=== PATIENT | male | born 1945 | race Caucasian/White ===

== ENCOUNTER → 2019-11-23 12:08 | Outpatient (CLI) | payer MEDICARE, BC, SELFPAY ==
--- NOTE | 2019-11-23 12:12 | DI.RAD.S_ITS ---
PROCEDURE: XR LUMBAR SPINE MIN 4V INDICATIONS: low back pain TECHNIQUE: 5 views of the lumbar spine were acquired. COMPARISON: None. FINDINGS: Bones: 5 nonrib-bearing vertebrae are present. There is mildly levoscoliotic bony alignment. No vertebral body compression fractures. No suspicious bony lesions. Quality of visualization is very limited by overlying obstipation and bowel gas. There appears to be a mild to moderate degree of upper lumbosacral spine degenerative disc disease to the L2-3 level and below this level the intervertebral disc height reduction is less. Facet osteoarthritis is moderate in severity and poorly visualized due to factors discussed above. Soft tissues: Overlying bowel gas pattern is normal. No suspicious soft tissue calcifications. Oblique images: No pars defects. IMPRESSION: Moderate degenerative disc disease with mild convex leftward scoliosis centered at L2-3. The degenerative disc disease is most prominent over the upper half of the LS-spine and facet osteoarthritis is quite poorly visualized due to overlying colonic obstipation and bowel gas. No definite compression fracture or subluxation is seen but as noted the study is limited. Dictated by: Jose D Cisneros M.D. on 11/23/2019 at 13:54 Approved by: Jose D Cisneros M.D. on 11/23/2019 at 13:55
== END ==
PROVIDERS: PCP Internal Medicine; Visit Provider Physical Medicine & Rehabilitation
DX: M54.5 Low back pain (principal); M47.27 Other spondylosis with radiculopathy, lumbosacral region; M51.16 Intervertebral disc disorders with radiculopathy, lumbar region; M41.86 Other forms of scoliosis, lumbar region; M48.061 Spinal stenosis, lumbar region without neurogenic claudication; G62.9 Polyneuropathy, unspecified; K59.00 Constipation, unspecified
CPT/HCPCS: 72110; 99213

== ENCOUNTER → 2021-04-08 13:10 | Outpatient (CLI) | payer MEDICARE, BC, SELFPAY ==
--- NOTE | 2021-04-08 13:12 | DI.MRI.S_ITS ---
PROCEDURE: MR LUMBAR SPINE WO CON INDICATIONS: Right L4-5 L5-S1 facet arthropathy TECHNIQUE: Noncontrast sagittal T1 spin echo and T2 fast echo, sagittal STIR, axial T1 and T2 fast spin echo through the lumbar spine. In cases with scoliosis, additional coronal T2 fast spin echo may be performed. COMPARISON: [facility], , L-SPINE WITHOUT CONTRAST, 12/13/2011, 7:43. FINDINGS: Image quality: Excellent. Alignment and Curvature: Degenerative levocurvature centered at L2 with interval increase in rightward displacement of L1 relative to L2 since the prior study, now measuring approximately 8 mm. Trace degenerative anterolisthesis of L4 on L5. Bone Marrow: Marrow is of normal overall signal. No acute vertebral body compression fractures. Spinal Cord: Conus medullaris terminates at the L1 level. Visualized cord demonstrates normal signal and size. Paraspinous Soft Tissues: No paravertebral masses. T12-L1: No canal stenosis or foraminal stenosis. L1-L2: Interval development of moderate disc height loss and increase in posterior disc bulge. Bilateral facet hypertrophy with significant interval increase in the right facet hypertrophy with a medially directed component resulting in severe right lateral recess stenosis and moderately severe stenosis of the right side of the canal. There is moderate to severe right foraminal narrowing with right foraminal nerve root impingement. There is mild to moderate left foraminal narrowing. L2-L3: Severe chronic disc height loss as before. Bilateral facet hypertrophy, slightly increased. Mild canal stenosis is not significantly changed. Unchanged moderate to severe right foraminal narrowing and moderate left foraminal narrowing with flattening deformity on the exiting bilateral L2 nerve roots. L3-L4: Interval development of a large diffuse disc bulge, which indents on the ventral aspect of the thecal sac, and increase in facet and ligament hypertrophy, exuberant. This results in moderate to severe canal stenosis. There is moderate right foraminal narrowing and moderate to severe left foraminal narrowing with flattening deformity on the exiting bilateral L3 nerve roots. L4-L5: Minimal anterolisthesis of L4 on L5. Diffuse disc bulge. Interval increase in bilateral facet hypertrophy, exuberant. Moderate canal stenosis. Moderate right foraminal narrowing and moderate to severe left foraminal narrowing with bilateral flattening deformity on the exiting bilateral L4 nerve roots. L5-S1: No canal stenosis. Bilateral facet hypertrophy, prominent on the left. Right foramen is patent. Mild to moderate left foraminal narrowing. IMPRESSION: 1. Interval overall progression of degenerative change. Findings include interval increase in rightward displacement of L1 relative to L2, as well as progression of multilevel impressive facet arthropathy. 2. Progression at L3-L4 includes development of a large diffuse disc bulge which, in conjunction with facet arthropathy, results in moderate to severe canal stenosis. 3. At L1-L2, progression of right facet arthropathy results in severe right lateral recess stenosis and moderately severe stenosis of the right side of the canal. 4. Canal stenosis is mild at L2-L3, moderate to severe at L3-L4, and moderate at L4-L5. 4. Multilevel foraminal narrowing as described above. Dictated by: Pipe Menjivar M.D. on 04/10/2021 at 10:03 Approved by: Pipe Menjivar M.D. on 04/10/2021 at 10:17
== END ==
PROVIDERS: PCP Internal Medicine; Referring Provider Physical Medicine & Rehabilitation; Visit Provider Physical Medicine & Rehabilitation
DX: M47.816 Spondylosis without myelopathy or radiculopathy, lumbar region (principal); M48.061 Spinal stenosis, lumbar region without neurogenic claudication; M47.817 Spondylosis without myelopathy or radiculopathy, lumbosacral region; M48.07 Spinal stenosis, lumbosacral region; M51.26 Other intervertebral disc displacement, lumbar region; M41.9 Scoliosis, unspecified
CPT/HCPCS: 72148

== ENCOUNTER → 2021-04-24 11:05 | Outpatient (CLI) | payer MEDICARE, BC, SELFPAY ==
[2021-04-24 17:33] LABS: COVID19 -Nasal RAPID Negative (Negative)
== END ==
PROVIDERS: PCP Internal Medicine; Referring Provider Physical Medicine & Rehabilitation; Visit Provider Physical Medicine & Rehabilitation
DX: Z20.822 Contact with and (suspected) exposure to COVID-19 (principal)
CPT/HCPCS: 87635; C9803

== ENCOUNTER 2021-04-25 15:06 | Outpatient (CLI) | payer MEDICARE, BC, SELFPAY ==
[2021-04-25] VITALS (8 sets, daily range): BP systolic 130–149; BP diastolic 66–85; PULSE 64–78; RESP 17–24; TEMP 36.6; O2SAT 96–100
--- NOTE | 2021-04-25 15:12 | DI.RAD.S_ITS ---
PROCEDURE: PAIN L/SI FACET INJ/BLK 1STL INDICATIONS: SPONDYLOSIS COMPARISON: X-ray lumbar spine, 11/25/2019. MRI lumbar spine, 04/08/2021. FINDINGS: Fluoroscopic spot filming was performed to verify placement of spinal needles at the L4-L5 and L5-S1 facet joints as labeled on the films. Appropriate location(s) of the needle tip(s) was confirmed by injection of iodinated contrast. IMPRESSION: Fluoroscopy guidance for needle placement. Dictated by: Brian Escobar M.D. on 04/25/2021 at 17:26 Approved by: Brian Escobar M.D. on 04/25/2021 at 17:27
[2021-04-25] MEDS: fentaNYL 100 MCG/2 ML INJ 50 MCG IV (15:53)
[2021-04-25] MEDS: MIDAZOLAM 5 MG/5 ML VIAL IV (15:53)
[2021-04-25] MEDS: IOPAMIDOL 15 ML VIAL 3 ML INJ (15:57)
[2021-04-25] MEDS: BUPIVACAINE 0.5% (PF) VIAL 2 ML INJ (15:57)
[2021-04-25] MEDS: BETAMETHASONE 30 MG/5 ML MDV 12 MG INJ (15:57)
--- NOTE | 2021-04-25 16:07 | P.PCN_ITS ---
Date/Time/Diagnoses Date of procedure: 04/25/21 Time of procedure: 16:07 Pre-procedure diagnosis: 1. FACET ARTHROPATHY, 2. AXIAL LBP, 3. MULTILEVEL DDD Post-procedure diagnosis: same Procedure Notes Procedure: 1. FLUOROSCOPICALLY GUIDED CONTRAST CONTROLLED FACET JOINT INJECTIONS RIGHT L4/5, L5/S1 Indications: Gera is referred by Dr. Matta for treatment of Axial LBP Physician: Magdy Corcoran Total Fluoroscopy time (seconds): 5 Total sedation minutes: 9 Complications: none Procedure in detail & Post-procedure care: FINDINGS Multilevel Facet Arthropathy with Clinically significant axial LBP DESCRIPTION OF PROCEDURE Fluoroscopically guided, contrast-controlled right L4/5, L5/S1 facet joint injections. Following review of allergy and review of potential side effects and complications, including, but not necessarily limited to, infection, allergic reaction, local tissue breakdown, stroke, temporary or permanent nerve injury, paralysis, and possible , the patient indicated that the patient understood and agreed to proceed. An informed consent document was signed by the patient, witnessed by a nurse, and placed in the patient's chart. Additionally, other treatment options including medications, modalities, and physical therapy were reviewed with the patient. After review of previous anaesthesic history and IV conscious sedation the patient was deemed safe to proceed with today?s procedure with IV conscious sedation as ASA class II designation. Safety time-out was performed to confirm patient ID, procedure to be performed and site of procedure. IV sedation was accomplished with a combination of 2mg of Versed and 50mcg of Fentanyl was administered by the RN after DO order, titrated to patient comfort during the course of the procedure while the patient remained responsive to all verbal commands. In the prone position, following sterile prep and drape of the lumbar region, the posterior aspect of the right L4/5, L5/S1 facet joints were identified fluoroscopically. The skin was anesthetized via a 25-gauge 1.5-inch needle with 1% lidocaine solution into the corresponding facet joints. At this point, a 22- gauge 3.5-inch spinal needle was atraumatically introduced and advanced under fluoroscopic guidance into the corresponding facet joints. Following negative aspiration, injections of approximately 0.2-cc of Isovue 200 confirmed interarticular placement without vascular uptake. Radiological data, including multiple fluoroscopic views of the lumbosacral spine, reveal a spinal needle at the right L4/5, L5/S1 facet joints. Subsequent views show flow of contrast material both superiorly and inferiorly within the joint space without vascular or intrathecal uptake. At this point, a total of 0.5cc including a mixture of 0.25cc Marcaine and 0.25cc betamethasone was injected without complication into each of the corresponding facet joints. The procedure tolerated the procedure well without signs or symptoms of compl ications prior to transfer to the recovery area continued monitoring without incident. The patient was then transferred to the recovery area where they were observed for an appropriate period of time after the injection. The patient reported a VAS score of 7 prior to the procedure and a post-procedure VAS of 0. POST OP INSTRUCTIONS The patient was provided a Pain Log to continue to record their response to the target-specific procedure prior to follow-up visit with their referring physician. Additionally, specific post-injection care instructions and a contact number to our office were provided if concerns arise regarding possible complications associated with the procedure are suspected.
== END 2021-04-25 16:25 | disposition home or self-care (01) ==
PROVIDERS: PCP Internal Medicine; Referring Provider Physical Medicine & Rehabilitation; Visit Provider Physical Medicine & Rehabilitation
DX: M47.816 Spondylosis without myelopathy or radiculopathy, lumbar region (principal); M47.817 Spondylosis without myelopathy or radiculopathy, lumbosacral region; M51.36 Other intervertebral disc degeneration, lumbar region; M51.37 Other intervertebral disc degeneration, lumbosacral region; M54.5 Low back pain
CPT/HCPCS: 64493; 64494; J0702; J2250; J3010

== ENCOUNTER → 2021-06-13 12:12 | Outpatient (CLI) | payer MEDICARE, BC, SELFPAY ==
--- NOTE | 2021-06-13 12:14 | DI.RAD.S_ITS ---
PROCEDURE: XR LUMBAR SPINE MIN 4V INDICATIONS: BACK PAIN TECHNIQUE: 5 views of the lumbar spine acquired, including flexion and extension views. COMPARISON: [facility], , XR LUMBAR SPINE MIN 4V, 11/23/2019, 12:07. FINDINGS: Bones: 5 nonrib-bearing vertebrae are present. Mild levoscoliosis centered at the L3 level. Trace spondylolisthesis at the L4-L5 level. Multilevel disc degeneration, most notably and severe at the L1-L2 and L2-L3 level. Moderate L4-L5 and L5-S1 facet joint arthropathy.. No vertebral body compression fractures. No suspicious bony lesions. Soft tissues: Overlying bowel gas pattern is normal. No suspicious soft tissue calcifications. IMPRESSION: Multilevel spondylosis similar to prior examination dated 11/23/2019. Dictated by: Jordi Kahn [facility] Interpreted: Albert Mendoza MD on 06/13/2021 at 12:47 Transcribed by: DALLIN on 06/13/2021 at 12:51 Approved by: Jose D Cisneros M.D. on 06/14/2021 at 13:35
== END ==
PROVIDERS: PCP Internal Medicine; Referring Provider Physical Medicine & Rehabilitation; Visit Provider Physical Medicine & Rehabilitation
DX: M47.816 Spondylosis without myelopathy or radiculopathy, lumbar region (principal); M47.817 Spondylosis without myelopathy or radiculopathy, lumbosacral region; M41.26 Other idiopathic scoliosis, lumbar region
CPT/HCPCS: 72110

== ENCOUNTER 2022-08-02 07:52 | Outpatient (CLI) | payer MEDICARE, BC, SELFPAY ==
[2022-08-02] VITALS (7 sets, daily range): BP systolic 112–139; BP diastolic 57–74; PULSE 62–68; RESP 14–21; TEMP 36.5; O2SAT 96–100
--- NOTE | 2022-08-02 07:54 | DI.RAD.S_ITS ---
PROCEDURE: PAIN L/SI FACET INJ/BLK 1STL INDICATIONS: SPONDYLOSIS COMPARISON: [facility], , PAIN L/SI FACET INJ/BLK 1STL, 04/25/2021, 15:58. FINDINGS: Fluoroscopic spot filming was performed to verify placement of spinal needles at the L4 -S1 level(s), as labeled on the films. Appropriate location(s) of the needle tip(s) was confirmed by injection of iodinated contrast. IMPRESSION: Needle placement as above. Dictated by: Kayla Campbell M.D. on 08/02/2022 at 15:00 Approved by: Kayla Campbell M.D. on 08/02/2022 at 15:01
[2022-08-02] MEDS: MIDAZOLAM 2 MG/2 ML VIAL IV (08:38)
[2022-08-02] MEDS: BUPIVACAINE 0.5% (PF) VIAL 5 ML INJ (08:44)
[2022-08-02] MEDS: IOPAMIDOL 15 ML VIAL 3 ML INJ (08:45)
--- NOTE | 2022-08-02 08:53 | PM.PROC.IR.1 ---
Date/Time/Diagnoses Date of procedure: 08/02/22 Time of procedure: 08:53 Pre-procedure diagnosis: 1. FACET ARTHROPATHY Post-procedure diagnosis: same Procedure Notes Procedure: 1. Right L4, L5 and S1 MB BLOCKS LA Indications: Gera is referred by Dr. Matta for treatment of Right Axial LBP. Physician: Magdy Corcoran Total Fluoroscopy time (seconds): 6 Total sedation minutes: 11 Complications: none Procedure in detail & Post-procedure care: DESCRIPTION OF PROCEDURE Fluoroscopically guided, contrast-controlled right L4, L5 and S1 medial branch blocks with 0.5cc of 0.5% Marcaine. Following review of allergy and review of potential side effects and complications, including, but not necessarily limited to, infection, allergic reaction, local tissue breakdown, nerve injury, paralysis, stroke and possible , the patient indicated that the patient understood and agreed to proceed. An informed consent document was signed by the patient, witnessed by a nurse, and placed in the patient's chart. After review of previous anaesthesic history and IV conscious sedation the patient was deemed safe to proceed with today?s procedure with IV conscious sedation as ASA class II designation. Safety time-out was performed to confirm patient ID, procedure to be performed and site of procedure. IV sedation was accomplished with a combination of 2mg of Versed was administered by the RN after DO order, titrated to patient comfort during the course of the procedure while the patient remained responsive to all verbal commands In the prone position, following sterile prep and drape of the lumbar region, the right L4, L5 and S1 anatomical location of the medial branch of the dorsal ramus was identified fluoroscopically. Subsequently an anesthetic skin wheal using 1% lidocaine solution was initiated at each of the anatomical spots. Subsequently then a 22-gauge 3.5-inch spinal needle was atraumatically introduced and advanced under fluoroscopic guidance at each of the corresponding sites at the right L4, L5 and S1 MB. After negative aspiration, 0.2 cc of Isovue 200 was injected, confirming placement without vascular or intrathecal uptake. Subsequently then 0.5 cc of 0.5% Marcaine solution was injected at each of the corresponding sites at the right L4, L5 and S1 medial branch locations. The patient tolerated the procedure well without signs or symptoms of complications. The procedure tolerated the procedure well without signs or symptoms of complications prior to transfer to the recovery area continued monitoring without incident. Post-procedure, the patient was monitored initiating provocative activities to measure the amount of relief from block of the facetogenic pain. The patient reported a VAS of 7 prior to the procedure and a post-procedure VAS of 1. It has been a pleasure to assist in the diagnostic and therapeutic care of your patient. POST OP INSTRUCTIONS The patient was provided with a Pain Log to complete over the next several hours and subsequent days prior to the patient's follow up with the ordering physician. If the patient has awake overnight monitor relief to the solution applied, then they may be a candidate for medial branch rhizotomy. The patient is aware, was provided, once again, with a Pain Log and will follow up with the referring physician for review and clinical correlation.
== END 2022-08-02 09:10 | disposition home or self-care (01) ==
LOC: RAD 07:54
PROVIDERS: PCP Internal Medicine; Referring Provider Physical Medicine & Rehabilitation; Visit Provider Physical Medicine & Rehabilitation
DX: M47.817 Spondylosis without myelopathy or radiculopathy, lumbosacral region (principal); M47.816 Spondylosis without myelopathy or radiculopathy, lumbar region
CPT/HCPCS: 64493; 64494; 99152; J2250

== ENCOUNTER 2022-11-22 10:17 | Outpatient (CLI) | payer MEDICARE, BC, SELFPAY ==
[2022-11-22] VITALS (9 sets, daily range): BP systolic 108–136; BP diastolic 59–72; PULSE 61–67; RESP 16–24; TEMP 36.1; O2SAT 97–99
--- NOTE | 2022-11-22 10:19 | DI.RAD.S_ITS ---
PROCEDURE: PAIN L/S MED/LAT N RFA INDICATIONS: SPONDYLOSIS COMPARISON: [facility], , PAIN L/SI FACET INJ/BLK 1STL, 08/02/2022, 8:44. FINDINGS: Fluoroscopic spot filming was performed to verify placement of spinal needles on on the right at the L4, L5, and S1 levels. IMPRESSION: Images during rhizotomy within normal limits. Dictated by: Morgan Gauthier M.D. on 11/27/2022 at 14:14 Approved by: Morgan Gauthier M.D. on 11/27/2022 at 14:14
[2022-11-22] MEDS: MIDAZOLAM 2 MG/2 ML VIAL IV (11:38)
[2022-11-22] MEDS: LIDOCAINE 1% (PF) 5 ML INJ (11:43)
[2022-11-22] MEDS: BUPIVACAINE 0.5% (PF) 30 ML VIAL 5 ML INJ (11:43)
--- NOTE | 2022-11-22 12:13 | P.PCN_ITS ---
Date/Time/Diagnoses Date of procedure: 11/22/22 Time of procedure: 12:13 Pre-procedure diagnosis: 1. RECALCITRANT FACET ARTHROPATHY Post-procedure diagnosis: same Procedure Notes Procedure: 1. RIGHT L4 AND L5 MEDIAL BRANCH RADIOFREQUENCY NEUROTOMY AND RIGHT S1 DORSAL RAMUS BRANCH RADIOFREQUENCY NEUROTOMY Indications: Gera is referred by Dr. Matta for treatment of facet arthropathy. Physician: Magdy Corcoran Total Fluoroscopy time (seconds): 10 Total sedation minutes: 31 Complications: none Procedure in detail & Post-procedure care: DESCRIPTION OF PROCEDURE Right L4 and L5 medial branch radiofrequency neurotomy and right S1 dorsal ramus branch radiofrequency neurotomy under fluoroscopy with conscious sedation. The patient is well known to this clinic having undergone previous facet injections with good but temporary relief. The patient has experienced appropriate, concordant relief with previous facet and median branch blocks but the patient's pain has been recalcitrant to further conservative measures. Therefore, based upon the patient's relief and persistent symptoms, the patient is considered an appropriate candidate for facet rhizotomy. All of the patient's questions regarding the risks versus benefits of the procedure, including, but not limited to, bleeding, infection, temporary as well as lasting nerve injury, paralysis, stroke, and , as well treatment alternatives were answered to satisfaction. After review of previous anaesthesic history and IV conscious sedation the patient was deemed safe to proceed with today?s procedure with IV conscious sedation as ASA class II designation. Safety time-out was performed to confirm patient ID, procedure to be performed and site of procedure. IV sedation was accomplished with a combination of 2mg of Versed was administered by the RN after DO order, titrated to patient comfort during the course of the procedure while the patient remained responsive to all verbal commands. After obtaining informed consent, denial of pertinent drug allergies, as well as being made aware of the potential risks of bleeding, infection, spinal cord trauma, paralysis, temporary and permanent nerve damage, seizure, stroke, and possible , the patient was brought to the fluoroscopy suite and positioned prone on the fluoroscopy table. The lumbar region was prepped with Betadine and covered with a fenestrated drape in the usual sterile fashion. Appropriate monitors applied including pulse oximeter, pulse, and blood pressure for regular monitoring throughout the procedure. After local infiltration using 1% lidocaine, under fluoroscopic guidance, a 10- cm RF insulated needle with a 10-mm active tip was positioned parallel to the junction of the right sacral ala and the superior articulating process where the S1 dorsal ramus resides. Needle placement was confirmed with sensory stimulation at 50 Hz, with motor stimulation of .5v on the right which produced local stimulation without radicular component. The stimulation was then increased to 2v with, once again, only local multifidus stimulation without radicular component. This was then followed by two discreet lesions performed at 80 degrees Celsius for 90 seconds each. The needle was then removed and the identical procedure was performed along the length of the right L5 medial branch with motor stimulation at .7v on the right. The identical procedure was once again performed along the length of the right L4 medial branch with motor stimulation of .5v on the right. The patient tolerated the procedure well without signs or symptoms of complications prior to transfer to the recovery area continued monitoring without incident. The patient was then transferred to the recovery area where they were observed for an appropriate period of time after the injection. The patient was then transferred to the recovery area where they were observed for an appropriate period of time after the injection. The patient reported a VAS score of 7 prior to the procedure and a post- procedure VAS of 0. POST OP INSTRUCTIONS The patient was provided a Pain Log to continue to record the patient's response to the target-specific procedure prior to the patient's follow-up visit with the referring physician. Additionally, specific post-injection care instructions and a contact number to our office were provided if concerns arise regarding possible complications associated with the procedure are suspected.
== END 2022-11-22 12:15 | disposition home or self-care (01) ==
LOC: RAD 10:18
PROVIDERS: PCP Internal Medicine; Referring Provider Physical Medicine & Rehabilitation; Visit Provider Physical Medicine & Rehabilitation
DX: M47.816 Spondylosis without myelopathy or radiculopathy, lumbar region (principal); M47.817 Spondylosis without myelopathy or radiculopathy, lumbosacral region
CPT/HCPCS: 64635; 64636; 99152; 99153; J2250

== ENCOUNTER → 2023-06-06 10:48 | Outpatient (CLI) | payer MEDICARE, BC, SELFPAY ==
--- NOTE | 2023-06-06 10:50 | DI.RAD.S_ITS ---
PROCEDURE: XR CHEST 2V INDICATIONS: cardiac symptoms TECHNIQUE: 2 views of the chest were acquired. COMPARISON: None. FINDINGS: Surgical changes and devices: None. Lungs and pleura: No infiltrate or consolidation. Slight blunting of the left costophrenic angle. No pneumothorax. Mediastinum: Mediastinal contours are normal. Heart size is normal. Bones and chest wall: No suspicious bony abnormalities. Soft tissues appear unremarkable. IMPRESSION: 1. Slight blunting of left costophrenic angle may be secondary to pleural scarring or trace pleural effusion. Dictated by: Brian Escobar M.D. on 06/06/2023 at 12:12 Approved by: Brian Escobar M.D. on 06/06/2023 at 12:13
== END ==
PROVIDERS: PCP Pediatrics; Referring Provider Family Medicine; Visit Provider Family Medicine
DX: R06.09 Other forms of dyspnea (principal); I20.8 Other forms of angina pectoris; R42 Dizziness and giddiness
CPT/HCPCS: 71046

== ENCOUNTER → 2023-06-11 09:06 | Outpatient (CLI) | payer MEDICARE, BC, SELFPAY ==
[2023-06-11 10:26] LABS: Add Manual Diff / Slide Review NO; Basophils Absolute Auto 0 /uL (0-100); Basophils Percent Auto 0.8 % (0-2); Eosinophils Absolute Auto 100 /uL (0-450); Eosinophils Percent Auto 2.9 % (2-4); Hematocrit 38.3 % (41-53); Hemoglobin 13.3 g/dL (13.5-17.5); Lymphocytes Absolute Auto 1100 /uL (1100-4500); Lymphocytes Percent Auto 26.7 % (25-40); Mean Corpuscular HGB Conc 34.7 % (30-36); Mean Corpuscular Hemoglobin 33.2 PG (26-34); Mean Corpuscular Volume 95.6 fL (80-100); Monocytes Absolute Auto 500 /uL (0-900); Monocytes Percent Auto 11.7 % (3-14); Neutrophils Absolute Auto 2300 /uL (1500-7000); Neutrophils Percent Auto 57.9 % (50-75); Platelet Count 201 X10^3/uL (150-400); Red Cell Distribution Width 13.8 % (11.6-14.8)
[2023-06-11 10:38] LABS: Alanine Aminotransferase 25 IU/L (<50); Albumin 4.3 g/dL (3.5-5.0); Albumin Globulin Ratio 1.5 (1.0-2.8); Alkaline Phosphatase 60 U/L (38-126); Aspartate Aminotransferase 44 IU/L (17-59); BUN Creatinine Ratio 27.5 (6-22); Bilirubin Total 1.4 mg/dL (0.2-1.3); Blood Urea Nitrogen 22 mg/dL (9-20); Calcium 9.7 mg/dL (8.4-10.2); Carbon Dioxide 28 mmol/L (22-32); Chloride 103 mmol/L (98-107); Cholesterol 218 mg/dL (140-199); Estimated Glomerular Filt Rate > 60 mL/min (>60); Globulin 2.8 g/dL (1.7-4.1); Glucose 104 mg/dL (80-110); HDL Cholesterol 61 mg/dL (40-60); HEMOLYSIS < 15 (0-50); LDL Cholesterol Calculated 141 mg/dL (<100); Potassium 4.7 mmol/L (3.4-5.1); Sodium 137 mmol/L (137-145); Total Protein 7.1 g/dL (6.3-8.2); Triglycerides 81 mg/dL (35-150)
== END ==
PROVIDERS: PCP Family Medicine; Referring Provider Family Medicine; Visit Provider Family Medicine
DX: I20.8 Other forms of angina pectoris (principal); R06.09 Other forms of dyspnea; R42 Dizziness and giddiness
CPT/HCPCS: 36415; 80053; 80061; 85025

== ENCOUNTER → 2023-06-17 12:04 | Outpatient (CLI) | payer MEDICARE, BC, SELFPAY ==
--- NOTE | 2023-06-17 12:05 | DI.NM.S_ITS ---
PROCEDURE: NM SHO PERF SPECT REST & STR Rest and exercise myocardial perfusion SPECT with gated imaging and ejection fraction RADIOPHARMACEUTICAL: 26.1 mCi Tc-99m sestamibi IV at rest and 26.9 mCi Tc-99m sestamibi IV at peak exercise. A two day-protocol was performed. INDICATIONS: Dyspnea on exertion, positional lightheadedness, angina TECHNIQUE: Radiopharmaceutical was injected at peak stress test, and also at rest. SPECT images were obtained. SPECT myocardial perfusion images were displayed in short axis, horizontal long axis, and vertical long axis views. Gated images were reviewed using [employer] software. COMPARISON: None. CARDIAC STRESS: A standard Lloyd treadmill exercise tolerance test was performed by the patient under the supervision of an attending staff. The patient exercised for 4 minutes and 15 seconds; functional aerobic impairment (VANESSA) is +12%. Hemodynamic data: There is normal blood pressure and heart rate response to exercise stress. Patient achieved 124% of maximum predicted heart rate at peak exercise. Symptoms: Patient had non-diagnostic chest pain during exercise. EKG: No diagnostic EKG changes of ischemia; frequent PACs and run of atrial tachycardia with exercise that converted to sinus recovery. FINDINGS: Raw data: There is good myocardial labeling by radiotracer. No significant motion artifacts. Left ventricle function: Gated images demonstrate normal left ventricle wall thickening. No segmental wall motion abnormality. No transient ischemic dilation; TID is 0.84 (normal less than 1.3). The left ventricle resting end-diastolic volume is 109 mL. Left ventricle stress ejection fraction is 79%; normal values are above 45%. Myocardial perfusion: There is normal distribution of activity in the left and right ventricular myocardium on stress prone imaging, suggesting no ischemia and no prior infarction. IMPRESSION: Low risk, normal treadmill nuclear stress test from inducible ischemia standpoint. Run of sustained atrial tachycardia with exercise. 1) No perfusion evidence of ischemia or infarction. 2) Normal left ventricular size, wall motion, and systolic function (EF post stress 79%). 3) No ST changes during exercise or recovery. 4) Non-diagnostic chest pain during exercise that resolved during recovery. 5) Run of sustained atrial tachycardia with exercise that converted to sinus rhythm during recovery. 6) Reduced exercise tolerance (VANESSA +12%). Target heart rate achieved. Appropriate BP response to exercise. 7) No prior nuclear stress test available for comparison. Dictated by: Teodora Alejandra MD on 06/18/2023 at 16:58 Approved by: Teodora Alejandra MD on 06/18/2023 at 17:04
== END ==
PROVIDERS: PCP Family Medicine; Referring Provider Family Medicine; Visit Provider Family Medicine
DX: I20.8 Other forms of angina pectoris (principal); R06.09 Other forms of dyspnea; R42 Dizziness and giddiness
CPT/HCPCS: 78452; 93017; A9502

== ENCOUNTER → 2023-06-18 09:04 | Outpatient (CLI) | payer MEDICARE, BC, SELFPAY ==
--- NOTE | 2023-06-18 09:06 | DI.ECHO.S_ITS ---
[facility] +---------+ : : [address] : : : : [id number] : : : : Phone: [phone]+ Echocardiogram Report + + :Name: MERLY LEWIS Study Date: 06/18/2023 Height: 74 in : :[facility] ReadingLocation: Weight: 175 lb : : Gender: Male BSA: 2.1 m2 : :: 1945 Age: 78 yrs BP: 122/81 mmHg: :Reason For Study: CARDIAC MURMUR : :Ordering Physician: WAGNER NAQVIPerformed By: Josy López : :Referring: KANDI NAQVI : + + Interpretation Summary 1) Normal left ventricular thickness, size, wall motion, and systolic function (EF 55-60%). 2) Normal right ventricular size and function. 3) There is borderline bileaflet mitral valve prolapse. 4) There is mild to moderate mitral regurgitation. 5) There is mild to moderate tricuspid regurgitation. 6) The ascending aorta is mildly enlarged at 4.2cm. 7) No prior Echo available for comparison. Procedure: A two-dimensional transthoracic echocardiogram with color flow and Doppler was performed. The study quality was technically adequate. There is no prior echocardiogram noted for this patient. The patient was in sinus rhythm with heart rates between 53-73 bpm during the exam. Left Ventricle: The left ventricle is normal in size and wall thickness. The ejection fraction is estimated to be 55-60%. Left ventricular systolic function appears normal without focal wall motion abnormalities. Right Ventricle: The right ventricle is normal in size and function. Atria: The left atrial size is normal. Right atrial size is normal. There is no Doppler evidence for an interatrial shunt. Mitral Valve: There is prolapse of the posterior mitral valve leaflet(s). There is prolapse of the anterior mitral valve leaflet. There is borderline mitral valve prolapse. There is mild to moderate mitral regurgitation. Aortic Valve: The aortic valve is trileaflet. The aortic valve opens well. There is no aortic valve stenosis. No aortic regurgitation is present. Tricuspid Valve: The tricuspid valve is normal in structure and function. There is mild to moderate tricuspid regurgitation. The right ventricular systolic pressure is estimated to be at least 28 mmHg based on an estimated right atrial pressure of 3 mm Hg. Pulmonic Valve: The pulmonic valve leaflets are thin and pliable; valve motion is normal. There is mild to moderate pulmonic regurgitation. Great Vessels: The aortic root is normal size. The ascending aorta is mildly enlarged. The IVC is of normal diameter and collapses greater than 50% with a sniff. This suggests a low right atrial pressure of 3 mm Hg. Pericardium/ Pleura There is no pericardial effusion. There is no pleural effusion. MMode/2D Measurements & Calculations LVIDd: 4.9 cm LVOT diam: 2.4 cm LVIDs: 3.3 cm Ao root diam: 4.0 cm FS: 32.7 % asc Aorta Diam: 4.2 cm IVSd: 0.72 cm Ao Arch Diam (Prox Trans): 3.1 cm LVPWd: 0.73 cm LV hernandez. diameter/BSA (cm/m^2): 2.4 LV sys. diameter/BSA (cm/m^2): 1.6 LA A2 area: 16.2 cm2 RA long axis: 5.0 cm LA A4 area: 17.4 cm2 RA area: 17.9 cm2 LA length (vol): 4.8 cm RA vol: 53.9 ml LA vol: 49.7 ml RA : 26.3 ml/m2 LA vol index: 24.2 ml/m2 IVC diam: 2.0 cm RVD1 (basal): 3.6 cm RVD2 (mid): 2.8 cm TAPSE: 1.7 cm Doppler Measurements & Calculations Ao V2 max: 92.7 cm/sec LVOT Max Willis: 88.6 cm/sec Ao V2 mean: 65.7 cm/sec LV V1 max P.1 mmHg Ao max P.4 mmHg LV V1 VTI: 18.9 cm Ao mean P.9 mmHg JASPER(I,D): 4.0 cm2 Ao V2 VTI: 22.0 cm JASPER(V,D): 4.5 cm2 sev ratio: 0.86 JASPER indexed to BSA (cm^2/m^2): 2.0 MV E max willis: 55.2 cm/sec TR max willis: 250.5 cm/sec MV A max willis: 38.5 cm/sec TR max P.1 mmHg MV E/A: 1.4 PA V2 max: 83.6 cm/sec Med Peak E' Willis: 9.0 cm/sec PA V2 mean: 63.2 cm/sec E/E' med: 6.1 PA mean P.7 mmHg Lat Peak E' Willis: 9.1 cm/sec PA pr(Accel): 37.9 mmHg E/E' lat: 6.0 E/e' average: 6.1 MV dec time: 0.30 sec SV(OT): 88.1 ml Reading Physician:02:27 PM
== END ==
PROVIDERS: PCP Family Medicine; Referring Provider Family Medicine; Visit Provider Family Medicine
DX: I08.1 Rheumatic disorders of both mitral and tricuspid valves (principal); I77.89 Other specified disorders of arteries and arterioles; R42 Dizziness and giddiness; R06.09 Other forms of dyspnea; I20.8 Other forms of angina pectoris; Z86.79 Personal history of other diseases of the circulatory system
CPT/HCPCS: 93306

== ENCOUNTER → 2023-07-12 16:28 | Outpatient (CLI) | payer MEDICARE, BC, SELFPAY ==
[2023-07-12 17:15] LABS: Add Manual Diff / Slide Review NO; Basophils Absolute Auto 0 /uL (0-100); Basophils Percent Auto 0.6 % (0-2); Eosinophils Absolute Auto 200 /uL (0-450); Eosinophils Percent Auto 3.1 % (2-4); Hematocrit 38.2 % (41-53); Hemoglobin 12.9 g/dL (13.5-17.5); Lymphocytes Absolute Auto 1000 /uL (1100-4500); Lymphocytes Percent Auto 19.7 % (25-40); Mean Corpuscular HGB Conc 33.9 % (30-36); Mean Corpuscular Hemoglobin 32.9 PG (26-34); Monocytes Absolute Auto 600 /uL (0-900); Neutrophils Absolute Auto 3200 /uL (1500-7000); Neutrophils Percent Auto 64.6 % (50-75); Platelet Count 220 X10^3/uL (150-400); Red Blood Cell Count 3.94 X10^6/uL (4.5-5.9); Red Cell Distribution Width 14.2 % (11.6-14.8); White Blood Cell Count 4.9 X10^3/uL (4.5-11.0)
[2023-07-12 17:56] LABS: TSH w/ Reflex to FT4 1.11 uIU/mL (0.47-4.68)
== END ==
PROVIDERS: PCP Family Medicine; Referring Provider Family Medicine; Visit Provider Family Medicine
DX: D64.9 Anemia, unspecified (principal); R07.89 Other chest pain; R53.82 Chronic fatigue, unspecified
CPT/HCPCS: 84443; 85025

== ENCOUNTER → 2023-09-02 07:31 | Outpatient (CLI) | payer MEDICARE, BC, SELFPAY ==
--- NOTE | 2023-09-02 07:35 | DI.RAD.S_ITS ---
PROCEDURE: XR LUMBAR SPINE MIN 4V INDICATIONS: BACK PAIN TECHNIQUE: 5 views of the lumbar spine were acquired, including bilateral oblique views. COMPARISON: [facility], CR, XR LUMBAR SPINE MIN 4V, 06/13/2021, 12:24. [facility], CR, XR LUMBAR SPINE MIN 4V, 11/23/2019, 12:07. FINDINGS: Bones: 5 nonrib-bearing vertebrae are present. There is levoconvex curvature of the lumbar spine. Mild grade 1 anterolisthesis at L4-5. Trace grade 1 retrolisthesis at L2-3. No vertebral body compression fractures. No suspicious bony lesions. Multilevel disc space narrowing and degenerative endplate changes are seen. There is multilevel facet hypertrophy. Bones are osteopenic. Soft tissues: Overlying bowel gas pattern is normal. Aortic atherosclerotic calcifications. Oblique images: No pars defects. IMPRESSION: Moderate to severe multilevel spondylosis and degenerative spondylolisthesis, minimally progressed when compared to the exam from 06/13/2021. Approved by: Wilbert Rosado M.D. on 09/02/2023 at 10:14
--- NOTE | 2023-09-02 09:28 | DI.RAD.S_ITS ---
PROCEDURE: XR SHOULDER RT MIN 2V INDICATIONS: Right shoulder pain TECHNIQUE: 3 views of the shoulder were acquired. COMPARISON: None. FINDINGS: Bones: No fractures or dislocations. No suspicious bony lesions. Visualized ribs appear intact. Periarticular osteophyte formation at the acromioclavicular and glenohumeral joints Soft tissues: No suspicious soft tissue calcifications. IMPRESSION: Osteoarthritis. No acute fracture. No osseous lesion. If symptoms and/or clinical suspicion for pathology persist, further assessment with repeat, or advanced imaging (e.g., CT, MRI, or bone scan) may be helpful for further assessment. Dictated by: Monica Cárdenas M.D. on 09/02/2023 at 13:39 Approved by: Monica Cárdenas M.D. on 09/02/2023 at 13:40
== END ==
PROVIDERS: PCP Family Medicine; Referring Provider Physical Medicine & Rehabilitation; Visit Provider Physical Medicine & Rehabilitation
DX: M47.27 Other spondylosis with radiculopathy, lumbosacral region (principal); M47.26 Other spondylosis with radiculopathy, lumbar region; M48.061 Spinal stenosis, lumbar region without neurogenic claudication; M43.16 Spondylolisthesis, lumbar region; M19.011 Primary osteoarthritis, right shoulder; M75.41 Impingement syndrome of right shoulder; M53.3 Sacrococcygeal disorders, not elsewhere classified; M41.26 Other idiopathic scoliosis, lumbar region
CPT/HCPCS: 72110; 73030; 99214

== ENCOUNTER 2023-09-10 10:23 | Outpatient (CLI) | payer MEDICARE, BC, SELFPAY ==
[2023-09-10] VITALS (8 sets, daily range): BP systolic 100–133; BP diastolic 50–80; PULSE 46–53; RESP 16–25; TEMP 36.6; O2SAT 97–99
--- NOTE | 2023-09-10 | DI.RAD.S_ITS ---
PROCEDURE: PAIN SI JOINT INJECTION HUMPHREY INDICATIONS: SACROILIAC DISORDER COMPARISON: None. FINDINGS: Fluoroscopic spot filming was performed to verify placement of spinal needles at the bilateral SI joint level(s), as labeled on the films. Appropriate location(s) of the needle tip(s) was confirmed by injection of iodinated contrast. IMPRESSION: Newell needles in the bilateral SI joints for SI joint injection. Dictated by: Katharine Jimenes MD, PhD on 09/10/2023 at 13:59 Approved by: Katharine Jimenes MD, PhD on 09/10/2023 at 14:00
[2023-09-10] MEDS: MIDAZOLAM 2 MG/2 ML VIAL IV (11:25)
[2023-09-10] MEDS: iopamidoL 15 ML VIAL 3 ML INJ (11:27)
[2023-09-10] MEDS: BUPIVACAINE 0.5% (PF) 10 ML VIAL 2 ML INJ (11:27)
[2023-09-10] MEDS: BETAMETHASONE 30 MG/5 ML MDV 12 MG INJ (11:28)
--- NOTE | 2023-09-10 11:42 | PM.PROC.IR.1 ---
Date/Time/Diagnoses Date of procedure: 09/10/23 Time of procedure: 11:42 Pre-procedure diagnosis: Sacroiliac joint pain/DJD Post-procedure diagnosis: same Procedure Notes Procedure: Fluoroscopic guided contrast controlled bilateral sacroiliac joint injection Indications: Gera is referred by Dr. Ortiz for treatment of bilateral sacroiliac joint DJD Physician: Magdy Corcoran Total Fluoroscopy time (seconds): 18 Total sedation minutes: 13 Complications: none Procedure in detail & Post-procedure care: Description of procedure Fluoroscopic guided, contrast controlled bilateral sacroiliac joint injection Following review of allergies and review of potential side effects and complications, including, but not necessarily limited to, infection, allergic reaction, local tissue breakdown, temporary as well as permanent nerve injury, paralysis, stroke and possible , the patient indicated that they understood and agreed to proceed. An informed consent was signed by the patient, witnessed by a nurse, and placed in the patient's chart. Additionally, other treatment options including modalities, medications, and physical therapy were reviewed with the patient. After review of previous anaesthesic history and IV conscious sedation the patient was deemed safe to proceed with today?s procedure with IV conscious sedation as ASA class II designation. Safety time-out was performed to confirm patient ID, procedure to be performed and site of procedure. IV sedation was accomplished with a combination of 2mg Versed were administered by the RN after DO order, titrated to patient comfort during the course of the procedure while the patient remained responsive to all verbal commands In the prone position following sterile prep and drape of the pelvic region, the hyper lucency on in the inferior aspect of the sacroiliac joint was identified fluoroscopically the skin was anesthetized be a 25 gauge 1.5 inch needle with approximately 2cc of 1% lidocaine solution. At this point, a 22 gauge 3 in spinal needle was atraumatically introduced and advanced under fluoroscopic guidance into the inferior aspect of the right sacroiliac joint. Following negative aspiration, approximately 0.3cc of Isovue-300 was injected confirming intra-articular placement without vascular uptake. Radiographic data, including multiple fluoroscopic views of the pelvis, reveals a spinal needle in the sacroiliac joint hyper lucent zone. Subsequent view show flow contrast tear superiorly and inferiorly within the joint capsule without vascular intrathecal uptake. At this point a total of 1cc of 0.5% Marcaine was combined with 1cc of 6mg of betamethasone was injected without incident. Attention was then refocused the left sacroiliac joint where the procedure was replicated. The procedure tolerated the procedure well without signs or symptoms of complications prior to transfer to the recovery area continued monitoring without incident. The patient was then transferred to the recovery area with a bur observed for an appropriate time after the injection. The patient reverted a vas score of 8 prior to the procedure and post-procedure vas of 1. Postop instructions The patient was provided with a pain like to continue to record the patient's response to the target specific procedure prior to the patient's follow-up visit with the referring physician. Additionally, specific post injection care instructions and a contact number to our office were provided if concerns arise regarding the possible complications associated with procedure are suspected.
== END 2023-09-10 11:56 | disposition home or self-care (01) ==
LOC: RAD 10:24
PROVIDERS: PCP Family Medicine; Referring Provider Physical Medicine & Rehabilitation; Visit Provider Physical Medicine & Rehabilitation
DX: M46.1 Sacroiliitis, not elsewhere classified (principal); M53.3 Sacrococcygeal disorders, not elsewhere classified
CPT/HCPCS: 27096; 77002; 99152; J0702; J2250

== ENCOUNTER → 2023-10-29 08:49 | Outpatient (CLI) | payer MEDICARE, BC, SELFPAY ==
[2023-10-29 10:06] LABS: Add Manual Diff / Slide Review NO; Basophils Absolute Auto 0 /uL (0-100); Basophils Percent Auto 0.9 % (0-2); Eosinophils Absolute Auto 100 /uL (0-450); Eosinophils Percent Auto 2.3 % (2-4); Hematocrit 41.6 % (41-53); Hemoglobin 13.9 g/dL (13.5-17.5); Lymphocytes Absolute Auto 1300 /uL (1100-4500); Mean Corpuscular HGB Conc 33.5 % (30-36); Mean Corpuscular Hemoglobin 32.7 PG (26-34); Mean Corpuscular Volume 97.7 fL (80-100); Monocytes Absolute Auto 600 /uL (0-900); Neutrophils Absolute Auto 2800 /uL (1500-7000); Neutrophils Percent Auto 57.8 % (50-75); Platelet Count 240 X10^3/uL (150-400); Red Blood Cell Count 4.26 X10^6/uL (4.5-5.9); Red Cell Distribution Width 13.5 % (11.6-14.8); White Blood Cell Count 4.8 X10^3/uL (4.5-11.0)
[2023-10-29 10:21] LABS: Alanine Aminotransferase 40 IU/L (<50); Albumin 4.4 g/dL (3.5-5.0); Albumin Globulin Ratio 1.5 (1.0-2.8); Alkaline Phosphatase 70 U/L (38-126); BUN Creatinine Ratio 24.7 (6-22); Bilirubin Total 1.5 mg/dL (0.2-1.3); Blood Urea Nitrogen 21 mg/dL (9-20); Calcium 10.3 mg/dL (8.4-10.2); Carbon Dioxide 29 mmol/L (22-32); Chloride 104 mmol/L (98-107); Cholesterol 217 mg/dL (140-199); Estimated Glomerular Filt Rate > 60 mL/min (>60); Glucose 105 mg/dL (80-110); HDL Cholesterol 65 mg/dL (40-60); HEMOLYSIS < 15 (0-50); LDL Cholesterol Calculated 136 mg/dL (<100); Potassium 5.1 mmol/L (3.4-5.1); Sodium 138 mmol/L (137-145); Total Protein 7.4 g/dL (6.3-8.2); Triglycerides 82 mg/dL (35-150)
[2023-11-01 14:45] LABS: Aspartate Aminotransferase 54 IU/L (17-59)
== END ==
LOC: LAB 08:50
PROVIDERS: Internal Medicine Cardiovascular Disease; PCP Family Medicine; Referring Provider Family Medicine; Visit Provider Family Medicine
DX: Z00.00 Encounter for general adult medical examination without abnormal findings (principal); D64.9 Anemia, unspecified; E78.5 Hyperlipidemia, unspecified
CPT/HCPCS: 36415; 80053; 80061; 85025

== ENCOUNTER 2023-12-03 09:52 | Outpatient (CLI) | payer MEDICARE, BC, SELFPAY ==
[2023-12-03] VITALS (9 sets, daily range): BP systolic 118–147; BP diastolic 58–76; PULSE 48–52; RESP 14–22; TEMP 36.2; O2SAT 98–100
--- NOTE | 2023-12-03 10:45 | DI.RAD.S_ITS ---
PROCEDURE: PAIN SI JOINT INJECTION HUMPHREY INDICATIONS: SACROILITIS COMPARISON: [facility], XA, PAIN SI JOINT INJECTION HUMPHREY, 09/10/2023, 12:27. FINDINGS: Fluoroscopic spot filming was performed to verify placement of spinal needles at the bilateral sacroiliac joints as labeled on the films. Appropriate location(s) of the needle tip(s) was confirmed by injection of iodinated contrast. IMPRESSION: Fluoro guidance was provided intraoperatively for bilateral sacroiliac joint complex prolotherapy injections performed by the ordering physician. Dictated by: Delbert Frod M.D. on 12/03/2023 at 14:48 Approved by: Delbert Ford M.D. on 12/03/2023 at 14:49
--- NOTE | 2023-12-03 11:20 | PM.PROC.IR.1 ---
Date/Time/Diagnoses Date of procedure: 12/03/23 Time of procedure: 11:47 Pre-procedure diagnosis: Sacroiliac joint pain/DJD Post-procedure diagnosis: same Procedure Notes Procedure: Fluoroscopic guided contrast controlled bilateral sacroiliac joint injection with prolotherapy. Indications: Gera is referred by Dr. Ortiz for treatment of bilateral sacroiliac joint DJD Physician: Magdy Corcoran Total Fluoroscopy time (seconds): 18 Total sedation minutes: 18 Complications: none Procedure in detail & Post-procedure care: Description of procedure Fluoroscopic guided, contrast controlled bilateral sacroiliac joint injection Following review of allergies and review of potential side effects and complications, including, but not necessarily limited to, infection, allergic reaction, local tissue breakdown, temporary as well as permanent nerve injury, paralysis, stroke and possible , the patient indicated that they understood and agreed to proceed. An informed consent was signed by the patient, witnessed by a nurse, and placed in the patient's chart. Additionally, other treatment options including modalities, medications, and physical therapy were reviewed with the patient. After review of previous anaesthesic history and IV conscious sedation the patient was deemed safe to proceed with today?s procedure with IV conscious sedation as ASA class II designation. Safety time-out was performed to confirm patient ID, procedure to be performed and site of procedure. IV sedation was accomplished with a combination of 2mg Versed and 50mcg of Fentanyl were administered by the RN after DO order, titrated to patient comfort during the course of the procedure while the patient remained responsive to all verbal commands. In the prone position following sterile prep and drape of the pelvic region, the hyper lucency on in the inferior aspect of the sacroiliac joint was identified fluoroscopically the skin was anesthetized be a 25 gauge 1.5 inch needle with approximately 2cc of 1% lidocaine solution. At this point, a 22 gauge 3in spinal needle was atraumatically introduced and advanced under fluoroscopic guidance into the inferior aspect of the right sacroiliac joint. Following negative aspiration, approximately 0.3cc of Isovue-300 was injected confirming intra-articular placement without vascular uptake. Radiographic data, including multiple fluoroscopic views of the pelvis, reveals a spinal needle in the sacroiliac joint hyper lucent zone. Subsequent view show flow contrast tear superiorly and inferiorly within the joint capsule without vascular intrathecal uptake. At this point a total of 5cc of 0.5% Marcaine was combined with 5cc of 25% dextrose soln was injected without incident to the SI joint and ligamentous complex. Attention was then refocused the left sacroiliac joint where the procedure was replicated. The procedure tolerated the procedure well without signs or symptoms of complications prior to transfer to the recovery area continued monitoring without incident. The patient was then transferred to the recovery area with a bur observed for an appropriate time after the injection. The patient reverted a vas score of 7 prior to the procedure and post-procedure vas of 1. Postop instructions The patient was provided with a pain like to continue to record the patient's response to the target specific procedure prior to the patient's follow-up visit with the referring physician. Additionally, specific post injection care instructions and a contact number to our office were provided if concerns arise regarding the possible complications associated with procedure are suspected.
[2023-12-03] MEDS: fentaNYL 100 MCG/2 ML INJ 50 MCG IV (11:23)
[2023-12-03] MEDS: MIDAZOLAM 2 MG/2 ML VIAL IV (11:23)
[2023-12-03] MEDS: iopamidoL 15 ML VIAL 3 ML INJ (11:28)
[2023-12-03] MEDS: BUPIVACAINE 0.5% (PF) 10 ML VIAL 5 ML INJ (11:28)
[2023-12-03] MEDS: DEXTROSE 50 % IN WATER 25 GM/50 ML SYRINGE TUBE (11:29)
== END 2023-12-03 12:01 | disposition home or self-care (01) ==
LOC: RAD 09:53
PROVIDERS: PCP Family Medicine; Referring Provider Physical Medicine & Rehabilitation; Visit Provider Physical Medicine & Rehabilitation
DX: M53.3 Sacrococcygeal disorders, not elsewhere classified (principal); M46.1 Sacroiliitis, not elsewhere classified
CPT/HCPCS: 27096; 77002; 99152; J2250; J3010

== ENCOUNTER → 2024-03-16 09:35 | Outpatient (CLI) | payer MEDICARE, BC, SELFPAY ==
--- NOTE | 2024-03-16 09:36 | DI.RAD.S_ITS ---
PROCEDURE: XR SACROILIAC JOINT MIN 3V INDICATIONS: SI JOINT PAIN TECHNIQUE: 3 views of the sacroiliac joints were acquired. COMPARISON: None. FINDINGS: Bones: No bony erosions or ankylosis. No suspicious bony lesions. No fractures. Soft tissues: Overlying bowel gas pattern is normal. No suspicious soft tissue densities. IMPRESSION: No radiographic evidence of sacroiliitis. Approved by: Beltran Mojica M.D. on 03/16/2024 at 17:30
[2024-03-16 11:45] LABS: Cholesterol 154 mg/dL (140-199); HDL Cholesterol 60 mg/dL (40-60); LDL Cholesterol Calculated 79 mg/dL (<100); Triglycerides 75 mg/dL (35-150)
== END ==
PROVIDERS: PCP Family Medicine; Referring Provider Physical Medicine & Rehabilitation; Visit Provider Physical Medicine & Rehabilitation
DX: E78.5 Hyperlipidemia, unspecified (principal); M53.3 Sacrococcygeal disorders, not elsewhere classified; M47.816 Spondylosis without myelopathy or radiculopathy, lumbar region; G89.29 Other chronic pain
CPT/HCPCS: 36415; 72202; 80061

== ENCOUNTER 2024-06-16 14:20 | Outpatient (CLI) | payer MEDICARE, BC, SELFPAY ==
[2024-06-16] VITALS (9 sets, daily range): BP systolic 104–167; BP diastolic 54–79; PULSE 40–59; RESP 12–22; TEMP 36.4; O2SAT 97–99
--- NOTE | 2024-06-16 14:56 | PC.NURSE ---
Patient's initial vital signs obtained and His heart rate was noted to be between 34-55. 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 PAC's and PVC's noted and patient also has an unknown arrhythmia. Patient denies any cardiac symptoms including SOB, Lightheadedness, vision changes, chest pain. Patient's pulse at the enrollment manager previously in the 60's-70's. Dr. Corcoran notified pre-procedure.
--- NOTE | 2024-06-16 15:15 | DI.RAD.S_ITS ---
PROCEDURE: PAIN SI JOINT INJECTION HUMPHREY INDICATIONS: SI JOINT DYSFUNCTION COMPARISON: [facility], XA, PAIN SI JOINT INJECTION HUMPHREY, 12/03/2023, 12:28. FINDINGS: Fluoroscopic spot filming was performed to verify placement of spinal needles at the sacroiliac joints, as labeled on the films. Appropriate location(s) of the needle tip(s) was confirmed by injection of iodinated contrast. IMPRESSION: Bilateral sacroiliac injections, please see operative note for full details. Dictated by: Rex Crump M.D. on 06/16/2024 at 21:03 Approved by: Rex Crump M.D. on 06/16/2024 at 21:04
[2024-06-16] MEDS: MIDAZOLAM 2 MG/2 ML VIAL IV (15:18)
[2024-06-16] MEDS: iopamidoL 15 ML VIAL 3 ML INJ (15:22)
[2024-06-16] MEDS: BUPIVACAINE 0.5% (PF) 10 ML VIAL 5 ML INJ (15:23)
[2024-06-16] MEDS: BETAMETHASONE 30 MG/5 ML MDV 12 MG INJ (15:23)
--- NOTE | 2024-06-16 15:32 | PM.PROC.IR.1 ---
Date/Time/Diagnoses Date of procedure: 06/16/24 Time of procedure: 15:32 Pre-procedure diagnosis: Sacroiliac joint pain/DJD Post-procedure diagnosis: same Procedure Notes Procedure: Fluoroscopic guided contrast controlled bilateral sacroiliac joint injection Indications: Gera is referred by Dr. Ortiz for treatment of bilateral sacroiliac joint DJD Physician: Magdy Corcoran Total Fluoroscopy time (seconds): 9 Total sedation minutes: 10 Complications: none Procedure in detail & Post-procedure care: Description of procedure Fluoroscopic guided, contrast controlled bilateral sacroiliac joint injection Following review of allergies and review of potential side effects and complications, including, but not necessarily limited to, infection, allergic reaction, local tissue breakdown, temporary as well as permanent nerve injury, paralysis, stroke and possible , the patient indicated that they understood and agreed to proceed. An informed consent was signed by the patient, witnessed by a nurse, and placed in the patient's chart. Additionally, other treatment options including modalities, medications, and physical therapy were reviewed with the patient. After review of previous anaesthesic history and IV conscious sedation the patient was deemed safe to proceed with today?s procedure with IV conscious sedation as ASA class II designation. Safety time-out was performed to confirm patient ID, procedure to be performed and site of procedure. IV sedation was accomplished with a combination of 2mg Versed were administered by the RN after DO order, titrated to patient comfort during the course of the procedure while the patient remained responsive to all verbal commands In the prone position following sterile prep and drape of the pelvic region, the hyper lucency on in the inferior aspect of the sacroiliac joint was identified fluoroscopically the skin was anesthetized be a 25 gauge 1.5 inch needle with approximately 2cc of 1% lidocaine solution. At this point, a 22 gauge 3 in spinal needle was atraumatically introduced and advanced under fluoroscopic guidance into the inferior aspect of the right sacroiliac joint. Following negative aspiration, approximately 0.3cc of Isovue-300 was injected confirming intra-articular placement without vascular uptake. Radiographic data, including multiple fluoroscopic views of the pelvis, reveals a spinal needle in the sacroiliac joint hyper lucent zone. Subsequent view show flow contrast tear superiorly and inferiorly within the joint capsule without vascular intrathecal uptake. At this point a total of 1cc of 0.5% Marcaine was combined with 1cc of 6mg of betamethasone was injected without incident. Attention was then refocused the left sacroiliac joint where the procedure was replicated. The procedure tolerated the procedure well without signs or symptoms of complications prior to transfer to the recovery area continued monitoring without incident. The patient was then transferred to the recovery area with a bur observed for an appropriate time after the injection. The patient reverted a vas score of 7 prior to the procedure and post-procedure vas of 1. Postop instructions The patient was provided with a pain like to continue to record the patient's response to the target specific procedure prior to the patient's follow-up visit with the referring physician. Additionally, specific post injection care instructions and a contact number to our office were provided if concerns arise regarding the possible complications associated with procedure are suspected.
--- NOTE | 2024-06-16 15:57 | EKG_ITS ---
[facility] [address] [place] [address] Test Date: 2024-06-16 Pat Name: Gera Layne Department: [facility] Room: Gender: Male Gis Coordinator: : 1945 Requested By: Order Number: [id number] Reading MD: Dandy Ramon Measurements Intervals [place] Rate: 43 P: 68 CO: 200 QRS: 38 QRSD: 98 T: 62 QT: 454 QTc: 383 Interpretive Statements Marked sinus bradycardia with premature atrial complexes Electronically Signed On 06-22-2024 9:09:33 PDT by Dandy Ramon
--- NOTE | 2024-06-16 16:27 | PC.NURSE ---
Late entry: Procedure Note Patient with noted Bradycardia HR 33-45 with some prior to procedure. Patient with history of chest pain states that his metoprolol has taken care of that. Patient states that he has seen Dr. Alejandra recently but has never known his HR to be as low as the 30s. Dr. Corcoran made aware of patient HR and history prior to consent being signed. Upon arrival to the procedure room patient placed on radiation monitor, pul,se oximetry, BP and CO2 monitors by this RN. Patient HR now low 60s and in a sinus rhythm with an occasional PVC. Other vital signs within normal limits for the patient. Patient was give 2mg Versed per verbal order by Dr. Corcoran by this RN. Patient tolerated versed with some decrease in patient HR down to 33 bpm at it's lowest, patient aroused to verbal stimuli and instructed to deep breathe and HR rebounded to the mid 50s while patient awake. Dr. Corcoran aware of patient HR during this time. Patient HR hovering around 42-45 bpm through most of the procedure. Patient able to awake easily when aroused and respond to questioning. Patient denied chest pain, shortness of breath, dizziness or other symptoms when questioned. Procedure completed by Dr. Corcoran and patient able to sit up and transfer from procedure table to wheelchair without assistance. Patient transferred to recovery chair and report given to Wendy Hopkins, FELISHA and Felisa Leslie RN. Patient encouraged by Dr. Corcoran and this RN to call his primary physician Dr. Ortiz and Roof Foreman Dr. Alejandra at [facility] for urgent appointments.
--- NOTE | 2024-06-16 16:28 | PC.NURSE ---
Patient returned back from procedure and heart rate 36-50 bpm, patient denies any chest pain, SOB, headache, change in vision or any heart palpations. Rhythm strip noted to say Afib. Received verbal order for 12 lead EKG. EKG obtained, see report. Dr Corcoran was notified of findings. No new order have patient f/u with PCP and cardiology ABENA. Patient is ok to d/c home per Dr Corcoran. Patients aware and current plan. Copy of EKG sent home with patient. Patient advised if he has any chest pain, SOB, dizziness, lightheaded, change in vision and palpations to seek Emergency care. Patient and have no questions or concerns at this time and agree with this plan.
== END 2024-06-16 16:15 | disposition home or self-care (01) ==
LOC: RAD 14:21
PROVIDERS: PCP Family Medicine; Referring Provider Physical Medicine & Rehabilitation; Visit Provider Physical Medicine & Rehabilitation
DX: M53.3 Sacrococcygeal disorders, not elsewhere classified; M46.1 Sacroiliitis, not elsewhere classified; R00.1 Bradycardia, unspecified
CPT/HCPCS: 27096; 93005; 99152; J0702; J2250

== ENCOUNTER → 2024-11-03 09:43 | Outpatient (CLI) | payer MEDICARE, BC, SELFPAY ==
[2024-11-03 10:43] LABS: Cholesterol 173 mg/dL (140-199); HDL Cholesterol 59 mg/dL (40-60); LDL Cholesterol Calculated 98 mg/dL (<100); Triglycerides 79 mg/dL (35-150)
[2024-11-03 13:41] LABS: Alanine Aminotransferase 27 IU/L (<50); Albumin 4.5 g/dL (3.5-5.0); Albumin Globulin Ratio 1.6 (1.0-2.8); Alkaline Phosphatase 54 U/L (38-126); Aspartate Aminotransferase 52 IU/L (17-59); BUN Creatinine Ratio 16.2 (6-22); Bilirubin Total 1.4 mg/dL (0.2-1.3); Blood Urea Nitrogen 16 mg/dL (9-20); Calcium 9.7 mg/dL (8.4-10.2); Carbon Dioxide 27 mmol/L (22-32); Chloride 104 mmol/L (98-107); Estimated Glomerular Filt Rate > 60 mL/min (>60); Globulin 2.8 g/dL (1.7-4.1); Glucose 96 mg/dL (80-110); HEMOLYSIS < 15 (0-50); Potassium 4.3 mmol/L (3.4-5.1); Sodium 138 mmol/L (137-145); Total Protein 7.3 g/dL (6.3-8.2)
[2024-11-03 14:08] LABS: Prostate Specific Antigen Scrn 1.09 ng/mL (0.1-4.0)
== END ==
PROVIDERS: PCP Family Medicine; Referring Provider Internal Medicine Cardiovascular Disease; Visit Provider Internal Medicine Cardiovascular Disease
DX: E78.5 Hyperlipidemia, unspecified (principal); Z12.5 Encounter for screening for malignant neoplasm of prostate
CPT/HCPCS: 36415; 80053; 80061; G0103

== ENCOUNTER → 2024-12-15 10:39 | Outpatient (CLI) | payer MEDICARE, BC, SELFPAY | PROVIDERS: PCP Family Medicine; Visit Provider Urology | DX: N40.1 Benign prostatic hyperplasia with lower urinary tract symptoms (principal) | CPT/HCPCS: 81002; 87086; 99214 ==

== ENCOUNTER 2024-12-21 05:59 | Day surgery (SDC) | payer MEDICARE, BC, SELFPAY ==
[2024-12-14 15:02] VITALS: BMI 22.9
[2024-12-21] VITALS (11 sets, daily range): BP systolic 119–153; BP diastolic 65–91; PULSE 50–80; RESP 14–17; TEMP 36.1–36.7; O2SAT 96–99; BMI 22.9
--- NOTE | 2024-12-21 | PATH_ITS ---
[facility] Accession Number: [id number] No. of containers..01 Tissue . 01 Material submitted: . prostate - PROSTATE CHIPS . 01 Diagnosis: PROSTATE CHIPS, TRANSURETHRAL RESECTION: Benign prostatic parenchyma, weight 7 grams, with nodular glandular and stromal hypertrophy. Negative for high-grade prostatic intraepithelial neoplasia and invasive carcinoma. Benign urothelial mucosa also present. MRV 12/23/2024 1510 Local . 01 Electronically signed: . Chance Graham MD, Pathologist NPI- [id number] . 01 Gross description: . Received in formalin labeled with two patient identifiers and prostate chips, and consist of a 4.0 x 3.0 x 1.1 cm (7 gram) aggregate of basilio-brown, rubbery, focally cauterized soft tissue which is entirely submitted in cassettes A1-A3. ([id number]) /KAM 12/22/2024 1109 Local . 01 Pathologist provided ICD-10: N40.1 . 01 CPT . 893856 Specimen Comment: A courtesy copy of this report has been sent to [facility] Performed at: [address] [address], [place], [place] [id number] MD Avi Sharif MD Phone: [phone]
[2024-12-21] MEDS: LACTATED RINGERS 1,000 ML 21 ML IV ×3 (06:56→10:04)
[2024-12-21] MEDS: ACETAMINOPHEN 325 MG TABLET 975 MG PO (07:05)
--- NOTE | 2024-12-21 07:22 | PM.PREOP ---
Pre-operative Note COVID-19 COVID-19 status: Not tested Interval Note History & Physical reviewed/Exam performed by Physician: Yes Changes to H&P: Yes H&P completed within 30 days and has changed as indicated here:: 79 y/o M noted to have BPH w/ LUTS and had opted for surgical management via an Aquablation. Unfortunately, I was alerted last week that we would be unable to have representatives available from [employer] [facility] in order to perform his Aquablation procedure. Discussed this with Gera over the phone and presented options moving forward to include rescheduling his procedure to a later date vs performing a transurethral resection of his prostate. Discussed that the risks of the procedure were identical to that of the Aquablation procedure and the recovery is identical as well. He opted for management of his condition via a transurethral resection of his prostate. Informed consent was obtained this morning.
[2024-12-21] MEDS: CEFAZOLIN 2 GM/100 ML PREMIX 100 ML IV (07:50)
--- NOTE | 2024-12-21 08:09 | SUR.OPER ---
Lithotomy on padded OR bed, head on pillow, arms secured on padded arm boards at <90 degrees abduction. Legs secured in padded yellow fins stirrups.
--- NOTE | 2024-12-21 09:18 | PM.OP.1 ---
Procedure & Clinicians Procedure: Cystoscopy Transurethral resection of prostate Same procedure as scheduled: Yes Indications: 79 y/o M w/ symptoms consistent w/ BPH and LUTS who preferred management via a transurethral resection of his prostate. Surgeon: Taras Moore Click Yes if Unassisted: Yes Anesthesia Type: General Operative Notes Findings: Coaptating lateral prostatic lobes, grade 3 trabeculations throughout bladder, multiple small posterior bladder wall diverticulum, bilateral Hutch diverticulum Closure Type: not applicable Specimen(s): other (prostate chips) Applied: catheter Estimated Blood Loss (mL): 50 Blood products transfused: none Procedure in detail: Patient was identified in the preoperative holding area and consent confirmed. He was then brought to the operating room where general anesthesia was induced. He was then placed in the low lithotomy position. He was then prepped and draped in the usual sterile fashion. A surgical timeout was conducted and all were in agreement. Access to the bladder was obtained via a 21Fr cystoscope. Complete cystoscopy was then performed using a 30 and 70 degree lens. Bilateral ureteral orifice were easily visualized and noted to be orthotopic in nature. He had grade 3 trabeculations throughout his bladder as well as multiple small diverticulum along his posterior bladder wall and bilateral Hutch diverticulum, no concerning masses or lesions were appreciated. The cystoscope was then removed and the 26Fr resectoscope with visual obturator was then advanced through his urethra and into his bladder. The working element with Gyrus loop was then assembled and passed through the resectoscope and into the bladder. Resection began with creating a channel at the 7 o'clock position from the bladder neck to immediately proximal to the verumontanum, at a depth of at the prostatic capsule. This was then repeated in similar fashion at the 5 o'clock position. The left lateral and right lateral prostatic lobes were then fully resected in similar fashion. All prostate specimens were then manually evacuated from the bladder using the resectoscope. Hemostasis was evaluated and noted to be excellent at case end. A 24Fr 3-way hematuria catheter was then inserted into his bladder, 45cc of sterile water was utilized for balloon insufflation. Continuous bladder irrigation was then initiated and it was noted to be clear. Anesthesia was reversed, he was extubated in the OR and transferred to the PACU in stable condition for recovery. Complications: none Post-operative Condition: stable Disposition: PACU Plan for aftercare: Will continue to run CBI for a few hours to evaluate the efflux from his catheter.? Should it remain relatively clear and with minimal blood clots, will discharge home with catheter in place and have him return to Urology clinic in 2 days for a voiding trial.? Should his efflux remain red or have significant clot burden, will admit overnight for observation and continued CBI.
[2024-12-21] MEDS: OXYCODONE IR 5 MG TABLET PO (09:39)
[2024-12-21] MEDS: OXYBUTYNIN 5 MG TABLET PO (09:39)
[2024-12-21] MEDS: PHENAZOPYRIDINE 100 MG TABLET 200 MG PO (09:39)
--- NOTE | 2024-12-21 11:54 | SUR.PHASEII ---
1145 Dr. Moore came by to assess patient. Surgeon stopped irrigation and plugged irrigant port of catheter. States patient may discharge home with morrissey.
== END 2024-12-21 11:55 | disposition home or self-care (01) ==
PROVIDERS: PCP Family Medicine; Referring Provider Urology; Visit Provider Urology
PROC: 0VT08ZZ Resection of Prostate, Via Natural or Artificial Opening Endoscopic (ICD-10-PCS; CPT 52601; principal; 2024-12-21 07:45)
DX: N40.1 Benign prostatic hyperplasia with lower urinary tract symptoms (principal); R33.9 Retention of urine, unspecified; R35.0 Frequency of micturition; R39.12 Poor urinary stream; R39.15 Urgency of urination; R35.1 Nocturia; N32.89 Other specified disorders of bladder; N32.3 Diverticulum of bladder
CPT/HCPCS: 52601; J0690; J1100; J2405; J2704; J3010

== ENCOUNTER → 2024-12-23 15:49 | Outpatient (CLI) | payer MEDICARE, BC, SELFPAY | PROVIDERS: PCP Family Medicine; Visit Provider Urology | DX: N40.1 Benign prostatic hyperplasia with lower urinary tract symptoms (principal) | CPT/HCPCS: 87086 ==

== ENCOUNTER 2025-01-26 14:19 | Outpatient (CLI) | payer MEDICARE, BC, SELFPAY ==
[2025-01-26] VITALS (9 sets, daily range): BP systolic 118–166; BP diastolic 56–74; PULSE 55–65; RESP 16–19; TEMP 36.8; O2SAT 97–100
[2025-01-26] MEDS: MIDAZOLAM 2 MG/2 ML VIAL IV (16:03)
[2025-01-26] MEDS: BETAMETHASONE 30 MG/5 ML MDV 12 MG INJ (16:08)
[2025-01-26] MEDS: BETAMETHASONE 30 MG/5 ML MDV 6 MG INJ (16:09)
[2025-01-26] MEDS: BUPIVACAINE 0.5% (PF) 10 ML VIAL 2 ML INJ (16:09)
[2025-01-26] MEDS: iopamidoL 15 ML VIAL 3 ML INJ (16:09)
--- NOTE | 2025-01-26 16:22 | PM.PROC.IR.1 ---
Date/Time/Diagnoses Date of procedure: 01/26/25 Time of procedure: 16:22 Pre-procedure diagnosis: Sacroiliac joint pain/DJD Post-procedure diagnosis: same Procedure Notes Procedure: Fluoroscopic guided contrast controlled bilateral sacroiliac joint injection Indications: Gera is referred by Dr. Ortiz for treatment of bilateral sacroiliac joint DJD Physician: Magdy Corcoran Total Fluoroscopy time (seconds): 11 Total sedation minutes: 15 Complications: none Procedure in detail & Post-procedure care: Description of procedure Fluoroscopic guided, contrast controlled bilateral sacroiliac joint injection Following review of allergies and review of potential side effects and complications, including, but not necessarily limited to, infection, allergic reaction, local tissue breakdown, temporary as well as permanent nerve injury, paralysis, stroke and possible , the patient indicated that they understood and agreed to proceed. An informed consent was signed by the patient, witnessed by a nurse, and placed in the patient's chart. Additionally, other treatment options including modalities, medications, and physical therapy were reviewed with the patient. After review of previous anaesthesic history and IV conscious sedation the patient was deemed safe to proceed with today?s procedure with IV conscious sedation as ASA class II designation. Safety time-out was performed to confirm patient ID, procedure to be performed and site of procedure. IV sedation was accomplished with a combination of 2mg Versed were administered by the RN after DO order, titrated to patient comfort during the course of the procedure while the patient remained responsive to all verbal commands In the prone position following sterile prep and drape of the pelvic region, the hyper lucency on in the inferior aspect of the sacroiliac joint was identified fluoroscopically the skin was anesthetized be a 25 gauge 1.5 inch needle with approximately 2cc of 1% lidocaine solution. At this point, a 22 gauge 3 in spinal needle was atraumatically introduced and advanced under fluoroscopic guidance into the inferior aspect of the right sacroiliac joint. Following negative aspiration, approximately 0.3cc of Isovue-300 was injected confirming intra-articular placement without vascular uptake. Radiographic data, including multiple fluoroscopic views of the pelvis, reveals a spinal needle in the sacroiliac joint hyper lucent zone. Subsequent view show flow contrast tear superiorly and inferiorly within the joint capsule without vascular intrathecal uptake. At this point a total of 1cc of 0.5% Marcaine was combined with 1cc of 6mg of betamethasone was injected without incident. Attention was then refocused the left sacroiliac joint where the procedure was replicated. The procedure tolerated the procedure well without signs or symptoms of complications prior to transfer to the recovery area continued monitoring without incident. The patient was then transferred to the recovery area with a bur observed for an appropriate time after the injection. The patient reverted a vas score of 7 prior to the procedure and post-procedure vas of 1. Postop instructions The patient was provided with a pain like to continue to record the patient's response to the target specific procedure prior to the patient's follow-up visit with the referring physician. Additionally, specific post injection care instructions and a contact number to our office were provided if concerns arise regarding the possible complications associated with procedure are suspected.
== END 2025-01-26 16:34 | disposition home or self-care (01) ==
PROVIDERS: PCP Family Medicine; Referring Provider Physical Medicine & Rehabilitation; Visit Provider Physical Medicine & Rehabilitation
DX: M53.3 Sacrococcygeal disorders, not elsewhere classified (principal); M46.1 Sacroiliitis, not elsewhere classified
CPT/HCPCS: 27096; 77002; 99152; J0702; J2250

== ENCOUNTER → 2025-01-27 08:13 | Outpatient (CLI) | payer MEDICARE, BC, SELFPAY | PROVIDERS: PCP Family Medicine; Visit Provider Urology | DX: N40.1 Benign prostatic hyperplasia with lower urinary tract symptoms (principal); Z12.5 Encounter for screening for malignant neoplasm of prostate | CPT/HCPCS: 51798; 81002; 87086; 99213 ==

== ENCOUNTER 2025-02-18 06:42 | Day surgery (SDC) | payer MEDICARE, BC, SELFPAY ==
--- NOTE | 2025-02-18 | PATH_ITS ---
[facility] Accession Number: [id number] No. of containers..03 Tissue . 01 Material submitted: . PART A: cecum - CECAL POLYP PART B: colon - COLON, ASCENDING POLYP PART C: colon - COLON, TRANSVERSE POLYP . 01 Diagnosis: A. CECAL POLYP: Tubular adenoma. . B. ASCENDING COLON POLYP: Tubular adenoma. . C. TRANSVERSE COLON POLYP: Colonic mucosa with benign lyphoid aggregate. MRV 02/22/2025 1253 Local . 01 Electronically signed: . Angie Kiser MD, Pathologist NPI- [id number] . 01 Gross description: . A. Received in formalin with two identifiers and cecal polyp, are four basilio soft tissue fragments, 0.3-0.5 cm in greatest dimension, submitted in A1. B. Received in formalin with two identifiers and ascending colon polyps, are two basilio soft tissue fragments, 0.4-0.5 cm in greatest dimension, submitted in B1. C. Received in formalin with two identifiers and transverse colon polyp, is a single basilio soft tissue fragment, 0.7 cm in greatest dimension, submitted in C1. ([id number]) /MRV 02/19/2025 1823 Local . 01 Pathologist provided ICD-10: D12.0, D12.2, K63.89 . 01 CPT . 527043, 942205, [id number] Specimen Comment: A courtesy copy of this report has been sent to [phone] Performed at: [address] [address], [place], [place] [id number] MD Avi Sharif MD Phone: [phone]
[2025-02-18 07:08] VITALS: BP 136/86; PULSE 104; RESP 14; TEMP 36.1; O2SAT 98
[2025-02-18] MEDS: LACTATED RINGERS 1,000 ML 42 ML IV (07:29)
--- NOTE | 2025-02-18 07:51 | P.HP_ITS ---
History of Present Illness History of Present Illness Date Patient Seen: 02/18/25 Time Patient Seen: 07:51 Chief complaint: Colonoscopy Narrative: Gera is an 80-year-old man here for colonoscopy. He believes he has never had polyps. His last colonoscopy was over 10 years ago. No family history of colon cancer. No melena or hematochezia. [facility] Medical History Ascending aorta enlargement PAC (premature atrial contraction) Atrial tachycardia HLD (hyperlipidemia) Bradycardia Encounter for subsequent annual wellness visit (AWV) in Medicare patient Impingement syndrome of right shoulder Sacral back pain Hx of mitral valve prolapse Positional lightheadedness KAPADIA (dyspnea on exertion) Anginal chest pain at rest Facet arthropathy, lumbar Foraminal stenosis of lumbar region Surgical History History of repair of left rotator cuff Family History Father COPD (chronic obstructive pulmonary disease) Mother Heart disease Social History marital status: household members: spouse Smoking Status: Never smoker alcohol intake: current substance use type: does not use Meds Home Medications and Allergies Home Medications Medication Instructions Recorded Confirmed Type acetaminophen 500 mg tablet 500 mg PO Q6H PRN Pain (Scale 09/02/23 01/27/25 History (Tylenol Extra Strength) Score 1-3) metoprolol succinate 25 mg 25 mg PO DAILY 11/18/23 02/18/25 History tablet,extended release 24 hr tramadol 50 mg tablet 50 mg PO BID PRN pain #42 tabs 09/23/24 01/27/25 Rx meloxicam 15 mg tablet 15 mg PO DAILY PRN Pain (Scale 11/03/24 01/27/25 History Score 1-3) valacyclovir 500 mg tablet mg PO PRN herpes 11/03/24 01/27/25 History acyclovir 200 mg capsule 200 mg PO DAILY PRN cold sores 11/26/24 01/27/25 History fluorouracil 5 % topical cream 1 applic topical BID PRN 11/26/24 01/27/25 History cancerious lesions gabapentin 600 mg tablet 300 mg PO BID 11/26/24 01/27/25 History lidocaine 5 % topical patch 1 patch topical DAILY PRN Pain 11/26/24 01/27/25 History (Scale Score 1-3) rosuvastatin 5 mg tablet 5 mg PO DAILY 01/13/25 01/27/25 History Allergies Allergy/AdvReac Type Severity Reaction Status Date / Time No Known Drug Allergies Allergy Verified 02/18/25 07:07 Exam Vital Signs (past 8 hours): - 02/18/25 07:08 Temperature 96.9 F L Pulse Rate 104 H Respiratory Rate 14 Blood Pressure 136/86 Pulse Oximetry 98 Oxygen Delivery Method Room Air Oxygen Delivery Method Room Air Const General: healthy appearing Assessment & Plan Assessment and plan (1) Colon cancer screening: Status: Acute Plan Colonoscopy Time-Based Coding :: [TOTAL MINUTES] spent with patient and on the chart (including review of chart, obtaining history, exam, reviewing outside data, placing orders, documenting exam and treatment plan, and counseling patient) on [DATE]. [employer] Document charge(s): No
--- NOTE | 2025-02-18 08:50 | PM.OP.COLON ---
Operative Date/Time/Diagnoses Date of procedure: 02/18/25 Time of procedure: 08:50 Pre-op diagnosis: Colon cancer screening Post-op diagnosis: same Procedure & Clinicians Study performed: Colonoscopy Same procedure as scheduled: Yes Surgeon: Tres Manjarrez Procedure Notes Procedure in detail: Surgeon: Tres Manjarrez MD Anesthesia: Hector Parkinson D.O. Procedure: The patient was brought to the endoscopy suite, placed in left lateral decubitus position. The patient was connected to monitoring devices. A time-out was performed. Sedation was administered. Once the patient was adequately sedated, a digital rectal exam was performed and was normal. The scope was then inserted and advanced to the cecum where the appendiceal orifice was identified and photographed. The scope was then slowly withdrawn over greater than 6 minutes. The mucosa was thoroughly inspected. There was a 7 mm polyp in the cecum removed with a cold snare. There were two 5 mm polyps in the ascending colon removed with a cold snare. There was a 3 mm polyp in the transverse colon removed with a cold snare. There was moderate sigmoid colon diverticulosis. The scope was retroflexed in the rectum. No other abnormalities were found. The scope was straightened and removed. The patient was awakened and brought to recovery. Scope withdrawal time: 12 minutes Sedation time: 25 minutes EBL: 5 mL Findings: 7 mm cecal polyp, 2 5 mm ascending colon polyps, 3 mm transverse colon polyp and sigmoid colon diverticulosis Post-procedure Disposition: PACU
[2025-02-18 08:54] VITALS: BP 112/75; PULSE 60; RESP 16; TEMP 36.5; O2SAT 98
[2025-02-18 08:59] VITALS: BP 112/78; PULSE 61; RESP 21; O2SAT 98
[2025-02-18 09:03] VITALS: BP 119/79; PULSE 59; RESP 16; O2SAT 98
== END 2025-02-18 09:18 | disposition home or self-care (01) ==
PROVIDERS: PCP Family Medicine; Referring Provider Surgery; Visit Provider Surgery
PROC: 0DJD8ZZ Inspection of Lower Intestinal Tract, Via Natural or Artificial Opening Endoscopic (ICD-10-PCS; CPT 45378; principal; 2025-02-18 08:15)
DX: Z12.11 Encounter for screening for malignant neoplasm of colon (principal); K57.30 Diverticulosis of large intestine without perforation or abscess without bleeding; D12.0 Benign neoplasm of cecum; D12.2 Benign neoplasm of ascending colon; K63.5 Polyp of colon
CPT/HCPCS: 45385; J2704

== ENCOUNTER → 2025-05-25 10:22 | Outpatient (CLI) | payer MEDICARE, BC, SELFPAY ==
[2025-05-25 12:15] LABS: Prostate Specific Antigen 0.803 ng/mL (0.10-4.00)
== END ==
PROVIDERS: PCP Family Medicine; Referring Provider Urology; Visit Provider Urology
DX: N40.1 Benign prostatic hyperplasia with lower urinary tract symptoms (principal); Z12.5 Encounter for screening for malignant neoplasm of prostate
CPT/HCPCS: 36415; 84153

== ENCOUNTER → 2025-10-01 10:46 | Outpatient (CLI) | payer MEDICARE, BC, SELFPAY ==
--- NOTE | 2025-10-01 10:49 | DI.RAD.S_ITS ---
PROCEDURE: FL JOINT INJECTION MEDIUM LT shoulder INDICATIONS: CSI into glenohumeral joint COMPARISON: None. TECHNIQUE: The indications, alternatives, benefits, risks, and complications of the procedure were explained to the patient. Written informed consent was obtained and placed in the chart. The patient was placed in an appropriate position on the fluoroscopy table, and a site was chosen for percutaneous access under fluoroscopic guidance. The site was prepped and draped in a sterile fashion. Local anesthetic was administered using a 1% lidocaine solution. A hypodermic or spinal needle was then used to access the symptomatic joint. Intra-articular location of the needle tip was confirmed by injecting a small amount of contrast, followed by steroid administration. The needle was then withdrawn, and a bandage applied to the puncture site. FINDINGS: Joint injected: Left shoulder Medications injected: 1 mL of 40 mg/mL Kenalog and 0.5% Ropivacaine mixture. Patient's pain before injection: 8 out of 10. Patient's pain after injection: 0 out of 10. Complications: None. IMPRESSION: Successful fluoroscopically guided administration of steroid and anaesthetic solution into the left shoulder joint. Dictated by: Karine CANAS Interpreted: Al Mariee MD on 10/01/2025 at 12:03 Transcribed by: BRAYDON on 10/01/2025 at 12:04 Approved by: Al Mariee M.D. on 10/02/2025 at 0:45
[2025-10-01] MEDS: LIDOCAINE 1% 20 ML INJ (11:50)
[2025-10-01] MEDS: TRIAMCINOLONE 40 MG/ML VIAL INTRA-ARTI (11:51)
== END ==
LOC: RAD 10:47
PROVIDERS: PCP Family Medicine; Referring Provider Family Medicine; Visit Provider Radiology Diagnostic Radiology
DX: M19.019 Primary osteoarthritis, unspecified shoulder (principal); M25.512 Pain in left shoulder; G89.29 Other chronic pain
CPT/HCPCS: 20605; 77002; Q9967

== ENCOUNTER 2025-10-26 10:35 | Outpatient (CLI) | payer MEDICARE, BC, SELFPAY ==
[2025-10-26 11:50] VITALS: BP 135/60; PULSE 68; RESP 14; TEMP 36.8; O2SAT 98
[2025-10-26 12:10] VITALS: BP 134/63; PULSE 66; RESP 16; O2SAT 99
[2025-10-26] MEDS: MIDAZOLAM 2 MG/2 ML VIAL IV (12:13)
[2025-10-26 12:15] VITALS: BP 125/65; PULSE 96; RESP 16; O2SAT 100
[2025-10-26 12:20] VITALS: BP 107/55; PULSE 68; RESP 16; O2SAT 99
[2025-10-26 12:30] VITALS: BP 107/51; PULSE 67; RESP 16; O2SAT 99
--- NOTE | 2025-10-26 12:32 | PM.PROC.IR.1 ---
Date/Time/Diagnoses Date of procedure: 10/26/25 Time of procedure: 12:32 Pre-procedure diagnosis: Sacroiliac joint pain/DJD Post-procedure diagnosis: same Procedure Notes Procedure: Fluoroscopic guided contrast controlled bilateral sacroiliac joint injection Indications: Gera is referred by Dr. Ortiz for treatment of bilateral sacroiliac joint DJD Physician: Magdy Corcoran Total Fluoroscopy time (seconds): 13 Total sedation minutes: 12 Complications: none Procedure in detail & Post-procedure care: Description of procedure Fluoroscopic guided, contrast controlled bilateral sacroiliac joint injection Following review of allergies and review of potential side effects and complications, including, but not necessarily limited to, infection, allergic reaction, local tissue breakdown, temporary as well as permanent nerve injury, paralysis, stroke and possible , the patient indicated that they understood and agreed to proceed. An informed consent was signed by the patient, witnessed by a nurse, and placed in the patient's chart. Additionally, other treatment options including modalities, medications, and physical therapy were reviewed with the patient. After review of previous anaesthesic history and IV conscious sedation the patient was deemed safe to proceed with today?s procedure with IV conscious sedation as ASA class II designation. Safety time-out was performed to confirm patient ID, procedure to be performed and site of procedure. IV sedation was accomplished with a combination of 2mg Versed were administered by the RN after DO order, titrated to patient comfort during the course of the procedure while the patient remained responsive to all verbal commands In the prone position following sterile prep and drape of the pelvic region, the hyper lucency on in the inferior aspect of the sacroiliac joint was identified fluoroscopically the skin was anesthetized be a 25 gauge 1.5 inch needle with approximately 2cc of 1% lidocaine solution. At this point, a 22 gauge 3 in spinal needle was atraumatically introduced and advanced under fluoroscopic guidance into the inferior aspect of the right sacroiliac joint. Following negative aspiration, approximately 0.3cc of Isovue-300 was injected confirming intra-articular placement without vascular uptake. Radiographic data, including multiple fluoroscopic views of the pelvis, reveals a spinal needle in the sacroiliac joint hyper lucent zone. Subsequent view show flow contrast tear superiorly and inferiorly within the joint capsule without vascular intrathecal uptake. At this point a total of 1cc of 0.5% Marcaine was combined with 1cc of 6mg of betamethasone was injected without incident. Attention was then refocused the left sacroiliac joint where the procedure was replicated. The procedure tolerated the procedure well without signs or symptoms of complications prior to transfer to the recovery area continued monitoring without incident. The patient was then transferred to the recovery area with a bur observed for an appropriate time after the injection. The patient reverted a vas score of 7 prior to the procedure and post-procedure vas of 1. Postop instructions The patient was provided with a pain like to continue to record the patient's response to the target specific procedure prior to the patient's follow-up visit with the referring physician. Additionally, specific post injection care instructions and a contact number to our office were provided if concerns arise regarding the possible complications associated with procedure are suspected.
[2025-10-26 12:40] VITALS: BP 117/59; PULSE 64; RESP 12; O2SAT 99
== END 2025-10-26 13:01 | disposition home or self-care (01) ==
PROVIDERS: PCP Family Medicine; Referring Provider Family Medicine; Visit Provider Physical Medicine & Rehabilitation
DX: M46.1 Sacroiliitis, not elsewhere classified (principal); M53.3 Sacrococcygeal disorders, not elsewhere classified
CPT/HCPCS: 27096; 99152; J1010; J1100; J2250